=== PATIENT | male | born 1965 | race African-American/Black ===

== ENCOUNTER 2018-01-07 10:19 | Emergency (ER) | payer OTHER ==
[~2018-01-07] VITALS: Ht 175.3 cm; Wt 93.0 kg
[2018-01-07 10:24] VITALS: BP 150/87
--- NOTE | 2018-01-07 10:24 | ED UPPER/LOWER EXTREMITY COMPL ---
History of Present Illness General Chief Complaint: Suture Removal/Wound Recheck Stated Complaint: SUTURE REMOVAL Source: patient, old records Exam Limitations: no limitations Vital Signs & Intake/Output Vital Signs & Intake/Output Vital Signs Date Time Temp Pulse Resp B/P B/P Pulse O2 O2 Flow FiO2 Mean Ox Delivery Rate 01/07 1024 96.0 88 20 150/87 99 Room Air Allergies Coded Allergies: No Known Allergies (12/29/17) Reconcile Medications No Known Home Medications Triage Note: PT TO ED FOR SUTURE REMOVAL TO LEFT THUMB. PLACED HERE 10 DAYS AGO. DENIES PAIN. Triage Nurses Notes Reviewed? yes Onset: Abrupt Duration: better Timing: recent history Severity: mild Severity Numbers: 1 HPI: Patient is a 52-year-old male who presents emergency room with requests a wound recheck and suture removal in which per old records patient was evaluated at [place] emergency room on December 29 for concerns of a laceration of the first MCP joint of his right hand from a saw, patient had x-rays performed showing no acute findings of fracture patient received in total 6 sutures Patient states he's been applying bacitracin to the wound once a day denies any signs of infection or pain Past History Travel History Traveled to [place] past 21 day No Medical History Any Pertinent Medical History? none Tetanus Vaccine: 12/29/17 Surgical History Surgical History: non-contributory Psychosocial History What is your primary language Sami Tobacco Use: Never used ETOH Use: denies use Illicit Drug Use: denies illicit drug use Family History Hx Contributory? No Review of Systems Review of Systems Constitutional: Reports: no symptoms. EENTM: Reports: no symptoms. Respiratory: Reports: no symptoms. Cardiovascular: Reports: no symptoms. Gastrointestinal/Abdominal: Reports: no symptoms. Genitourinary: Reports: no symptoms. Musculoskeletal: Reports: no symptoms. Skin: Reports: see HPI. Neurological/Psychological: Reports: no symptoms. Hematologic/Endocrine: Reports: no symptoms. Immunological: Reports: no symptoms. All Other Systems: Reviewed and Negative Physical Exam Physical Exam General Appearance: no apparent distress, alert, comfortable Head: atraumatic Eyes: Bilateral: normal appearance. Ears, Nose, Throat: hearing grossly normal Neck: normal inspection Cardiovascular/Respiratory: no respiratory distress Neurologic/Tendon: normal sensation, normal motor functions, normal tendon functions, responds to pain, no evidence tendon injury, no pulse deficit Skin: normal color, warm/dry Progress Differential Diagnosis: arterial insufficiency, compartment syndrome, contusion, dislocation, DVT, fracture, gout, septic arthritis, sprain, tendon injury Plan of Care: On examination there is no signs of infection the wound was well-healing #5 sutures were removed without complications Even THOUGH previous old records indicate that #6 sutures were placed only 5 were removed after examination Telfa and Carlo wrap were applied due to the wounds being at the first MCP joint for optimal healing Departure Departure Disposition: HOME OR SELF CARE Condition: Stable Clinical Impression Primary Impression: Wound of cheek Secondary Impressions: Visit for suture removal Referrals: Patient Has No Primary Care Dr (PCP/Family) Additional Instructions: As discussed continue during YOUR work hours to use the bandage with Carlo wrap provided to YOU IN the emergency room however at all other times TRY to leave the area open to improve healing. If you note signs infection or a concerning new symptom return to emergency room. Departure Forms: Customer Survey General Discharge Information Prescriptions: Current Visit Scripts No Known Home Medications
== END 2018-01-07 11:12 ==
LOC: ERH 10:19
DX: Z48.02 Encounter for removal of sutures (principal)